=== PATIENT | female | born 1965 | race Caucasian/White ===

== ENCOUNTER 2021-03-09 19:40 | Emergency (ER) | payer BC, SELFPAY ==
--- NOTE | 2021-03-09 | ECG_ITS ---
Test Reason : DYZZY Blood Pressure : / mmHG Vent. Rate : 069 BPM Atrial Rate : 069 BPM P-R Int : 162 ms QRS Dur : 072 ms QT Int : 424 ms P-R-T Axes : 068 015 043 degrees QTc Int : 454 ms Normal sinus rhythm Normal ECG No previous ECGs available Referred By: Virgil Medina Electronically Signed By:Bhupendra Martinez
--- NOTE | ~2021-03-09 | XR_ITS ---
EXAMINATION: PORTABLE CHEST 1 VIEW CLINICAL INFORMATION: Cough . COMPARISON: No recent pertinent prior studies are available for comparison. TECHNIQUE: Portable frontal view of the chest was obtained. FINDINGS: The lungs are well expanded. No focal infiltrate, effusion, edema, or pneumothorax. Cardiac and mediastinal silhouettes are within normal limits for technique. No acute bony abnormality seen. XR/XR chest 1V IMPRESSION: No evidence of acute disease.
[2021-03-09 21:08] VITALS: BP 122/78; PULSE 67; RESP 18; TEMP 37; O2SAT 100; BMI 25.4
--- NOTE | 2021-03-09 21:47 | ED.GENADULT ---
HPI - General Adult General Chief complaint: Upper Respiratory Symptoms Stated complaint: Earache Time Seen by Provider: 03/09/21 21:36 History of Present Illness HPI narrative: Patient complains of an episode of dizziness and feeling like she might pass out accompanied by vomiting She was standing in the kitchen feeling normal when a wave of nausea came and she went to the bathroom and then never fainted but did feel she was about to pass out as she vomited and then symptoms resolved She never fainted she did not have chest pain or shortness of breath she had no palpitations , she has had no exertional symptoms She also complains of upper respiratory symptoms in the preceding week or she has had a runny nose congestion and a cough as well as some ear pain She went to the urgent care and was given a Z-Guy for possible sinusitis but that has not improved her cold symptoms Related Data Allergies Allergy/AdvReac Type Severity Reaction Status Date / Time No Known Allergies Allergy Unverified 12/20/19 15:44 [No Known Allergies*] Review of Systems Review of Systems: Positive for episode of nausea vomiting and feeling faint Also positive for cold symptoms with cough and nasal congestion and ear pain Negatives are no fever no chills no headache no neck pain no numbness or weakness no stiff neck no chest pain no shortness of breath no palpitations no exertional symptoms no abdominal pain no dysuria no skin rash no numbness or weakness Yes all other systems are reviewed and are negative [facility] Past Medical History Medical History (Updated 03/10/21 @ 00:59 by BRENT Cole) Anxiety No known health problems Social History Social History Advance Directives: No Patient : No Physical Exam Vital Signs: Vital Signs: Last Vital Signs Temp 98 F 03/09/21 23:19 Pulse 67 03/09/21 23:19 Resp 18 03/09/21 23:19 BP 114/63 03/09/21 23:19 Pulse Ox 99 03/09/21 23:19 BMI result Body Mass Index 25.4 General appearance is no acute distress The eyes are anicteric with no pallor Pupils equal round reactive to light and extraocular motions are intact The pharynx is clear and well hydrated with no redness swelling or exudate The ears are normal with normal tympanic membranes and canals there is no redness, light reflex was normal bilaterally and easily seen The sinuses were nontender Chest is clear to auscultation bilateral next line heart no murmurs At meds soft and non tender Extremities no calf tenderness no edema no leg swelling Neuro no focal motor sensory deficit, gait and balance are normal Course Course Course Narrative: Chest x-ray was negative , COVID test was negative Labs did not reveal any acute abnormality First troponin was negative EKG was a normal sinus rhythm with no acute ischemic changes no ST elevations, intervals were normal Patient remains comfortable throughout ER visit and is drinking plenty of fluids without any nausea so no IV fluids were provided, vital signs remain stable and normal For her episode of vomiting and feeling faint we reviewed 2 troponins and a normal EKG Patient is advised to follow closely with primary doctor to further rule out the possibility that this was a cardiac related event It is also very possible this was a vasovagal event as she vomited then stood up abruptly and then felt like she was about to pass out Medical Decision Making Lab Data Lab results reviewed: Yes I reviewed the patient's lab results. Result diagrams: 03/09/21 22:11 03/09/21 22:11 Labs: Lab Results 03/09/21 03/09/21 03/09/21 Range/Units 21:33 22:11 22:11 WBC 7.0 (4.8-10.8) X10*3/uL RBC 3.95 L (4.20-5.50) X10*6/uL Hgb 12.2 (12.0-16.0) g/dl Hct 36.5 L (37.0-47.0) % MCV 92.4 (80.0-98.0) fL MCH 30.9 (27.0-33.0) pg MCHC 33.4 (31.0-35.0) g/dl RDW 13.7 (11.0-16.0) % Plt Count 244 (160-400) X10*3/uL MPV 9.8 (9.4-12.3) fL Immature Gran % (Auto) 0.4 (0.0-0.4) % Neut % (Auto) 70.2 (45-73) % Lymph % (Auto) 16.8 L (20-40) % [place] % (Auto) 10.4 (2-11) % Eos % (Auto) 1.3 (0-4) % Baso % (Auto) 0.9 (0-2) % Lymph # (Auto) 1.2 (1.2-4.9) X10*3/uL [place] # (Auto) 0.7 (0.1-1.2) X10*3/uL Eos # (Auto) 0.1 (0.0-0.4) X10*3/uL Baso # (Auto) 0.1 (0.0-0.2) X10*3/uL Abs Immat Gran (auto) 0.03 (0.00-0.03) X10*3/uL Absolute Neuts (auto) 4.9 (2.0-8.3) x10*3/uL Absolute Nucleated RBC 0.000 (0.0-0.012) X10*3/uL Nucleated RBC % (auto) 0.0 (0.0-0.2) /100WBC Sodium (135-145) mmol/L Potassium (3.3-5.1) mmol/L Chloride (96-108) mmol/L Carbon Dioxide (22-29) mmol/L Anion Gap (12-20) BUN (9-16) mg/dL Creatinine (0.5-1.4) mg/dL Estim Creat Clear Calc Estimated GFR Random Glucose (60-115) mg/dL Calcium (8.4-10.2) mg/dL Total Bilirubin (0.0-1.0) mg/dL Direct Bilirubin (0.0-0.5) mg/dL AST (5-31) U/L ALT (0-31) U/L Alkaline Phosphatase (39-117) U/L Troponin I High Sens < 3.5 (<3.5-17.0) ng/L Total Protein (6.5-8.0) g/dL Albumin (3.5-5.0) g/dL Lipase (8-78) U/L COVID-19 ([facility]) Negative (Negative) COVID-19 Clin Com See Note 03/09/21 Range/Units 22:11 WBC (4.8-10.8) X10*3/uL RBC (4.20-5.50) X10*6/uL Hgb (12.0-16.0) g/dl Hct (37.0-47.0) % MCV (80.0-98.0) fL MCH (27.0-33.0) pg MCHC (31.0-35.0) g/dl RDW (11.0-16.0) % Plt Count (160-400) X10*3/uL MPV (9.4-12.3) fL Immature Gran % (Auto) (0.0-0.4) % Neut % (Auto) (45-73) % Lymph % (Auto) (20-40) % [place] % (Auto) (2-11) % Eos % (Auto) (0-4) % Baso % (Auto) (0-2) % Lymph # (Auto) (1.2-4.9) X10*3/uL [place] # (Auto) (0.1-1.2) X10*3/uL Eos # (Auto) (0.0-0.4) X10*3/uL Baso # (Auto) (0.0-0.2) X10*3/uL Abs Immat Gran (auto) (0.00-0.03) X10*3/uL Absolute Neuts (auto) (2.0-8.3) x10*3/uL Absolute Nucleated RBC (0.0-0.012) X10*3/uL Nucleated RBC % (auto) (0.0-0.2) /100WBC Sodium 140 (135-145) mmol/L Potassium 4.4 (3.3-5.1) mmol/L Chloride 108 (96-108) mmol/L Carbon Dioxide 23 (22-29) mmol/L Anion Gap 13 (12-20) BUN 12 (9-16) mg/dL Creatinine 0.72 (0.5-1.4) mg/dL Estim Creat Clear Calc 69.2 Estimated GFR > 60 Random Glucose 90 (60-115) mg/dL Calcium 9.0 (8.4-10.2) mg/dL Total Bilirubin 0.4 (0.0-1.0) mg/dL Direct Bilirubin < 0.2 (0.0-0.5) mg/dL AST 19 (5-31) U/L ALT 14 (0-31) U/L Alkaline Phosphatase 83 (39-117) U/L Troponin I High Sens (<3.5-17.0) ng/L Total Protein 6.8 (6.5-8.0) g/dL Albumin 4.0 (3.5-5.0) g/dL Lipase 90 H (8-78) U/L COVID-19 ([facility]) (Negative) COVID-19 Clin Com Discharge Plan Discharge Clinical Impression: Pre-syncope, Vomiting, Acute viral syndrome Patient Disposition: Home, Self-Care Additional Instructions: We were concerned about your episode of feeling faint and vomiting so we checked heart attack tests and EKG which luckily were normal Follow closely with primary care doctor for further evaluation, and they will decide if stress testing is warranted As you vomited and felt the symptoms on standing up it is also possible that this was a vasovagal episode where blood pressure dropped as you stood up Your COVID test was negative her chest x-ray was normal and other lab tests were normal Both ears were normal in appearance with no sign of infection and her lungs were clear Vital signs were all normal Drink plenty of fluids Return to the ER any time any worse condition or any concerns
[2021-03-09 22:18] LABS: MANUAL DIFF FLAG NO
[2021-03-09 22:19] LABS: Basophils Absolute Auto 0.1 X10*3/uL (0.0-0.2); Basophils Percent Auto 0.9 % (0-2); Eosinophils Absolute Auto 0.1 X10*3/uL (0.0-0.4); Eosinophils Percent Auto 1.3 % (0-4); Hematocrit 36.5 % (37.0-47.0); Hemoglobin 12.2 g/dl (12.0-16.0); Imm Gran Abs Auto 0.03 X10*3/uL (0.00-0.03); Imm Gran Pct Auto 0.4 % (0.0-0.4); Lymphocytes Absolute Auto 1.2 X10*3/uL (1.2-4.9); Lymphocytes Percent Auto 16.8 % (20-40); Mean Corpuscular HGB Conc 33.4 g/dl (31.0-35.0); Mean Corpuscular Hemoglobin 30.9 pg (27.0-33.0); Mean Corpuscular Volume 92.4 fL (80.0-98.0); Mean Platelet Volume 9.8 fL (9.4-12.3); Monocytes Absolute Auto 0.7 X10*3/uL (0.1-1.2); Monocytes Percent Auto 10.4 % (2-11); Neutrophils Absolute Auto 4.9 x10*3/uL (2.0-8.3); Neutrophils Percent Auto 70.2 % (45-73); Platelet Count 244 X10*3/uL (160-400); Red Blood Count 3.95 X10*6/uL (4.20-5.50); Red Cell Distribution Width 13.7 % (11.0-16.0)
[2021-03-09 22:34] LABS: Alanine Aminotransferase 14 U/L (0-31); Alkaline Phosphatase 83 U/L (39-117); Anion Gap 13 (12-20); Aspartate Amino Transferase 19 U/L (5-31); Bilirubin Direct < 0.2 mg/dL (0.0-0.5); Bilirubin Total 0.4 mg/dL (0.0-1.0); Blood Urea Nitrogen 12 mg/dL (9-16); Carbon Dioxide 23 mmol/L (22-29); Chloride 108 mmol/L (96-108); Creatinine Clr Calc Pharmacy 69.2; Estimated Glomerular Filt Rate > 60; Glucose Random 90 mg/dL (60-115); Lipase 90 U/L (8-78); Potassium 4.4 mmol/L (3.3-5.1); Sodium 140 mmol/L (135-145); Total Protein 6.8 g/dL (6.5-8.0)
[2021-03-09 22:40] LABS: Troponin-I High Sensitivity < 3.5 ng/L (<3.5-17.0)
[2021-03-09 23:12] LABS: COVID-19 Test Negative (Negative)
[2021-03-09 23:19] VITALS: BP 114/63; PULSE 67; RESP 18; TEMP 36.6; O2SAT 99
[2021-03-10 00:51] LABS: Troponin-I High Sensitivity < 3.5 ng/L (<3.5-17.0)
== END 2021-03-10 01:13 | disposition home or self-care (01) ==
PROVIDERS: Physician Assistant Medical; Emergency Provider Emergency Medicine Emergency Medical Services; PCP Nurse Practitioner Family
DX: R55 Syncope and collapse (principal); R11.10 Vomiting, unspecified; B34.9 Viral infection, unspecified; Z20.822 Contact with and (suspected) exposure to COVID-19
CPT/HCPCS: 36415; 71045; 80048; 80076; 83690; 84484; 85025; 87635; 93005; 99283; 99285

== ENCOUNTER 2022-01-22 14:52 | Outpatient (REF) | payer BC, SELFPAY ==
--- NOTE | ~2022-01-22 | MM_ITS ---
EXAMINATION: MM SCREENING DIGITAL BREAST TOMOSYNTHESIS, BILATERAL CLINICAL INFORMATION: Screening. Asymptomatic. The lifetime risk of breast cancer based on the Tyrer-Cuzick Model is 13.3%. COMPARISON: Mammography: September 15, 2018 and studies dating back to May 02, 2014 TECHNIQUE: Digital breast tomosynthesis is performed in both the craniocaudal and mediolateral oblique views along with computer-aided detection (CAD). Synthesized 2D images are generated from the tomosynthesis. FINDINGS: The breasts are extremely dense, which lowers the sensitivity of mammography (ACR BI-RADS breast composition Category d). There are no significant masses, abnormal calcifications, or other abnormalities. MM/MM tomosynthesis screening BI IMPRESSION: No significant changes from prior exam. ASSESSMENT: BI-RADS 1: Negative RECOMMENDATION: Routine annual mammography screening. This patient's information was entered into a reminder system with a target due date for their next mammogram.
== END 2022-01-22 14:53 | disposition home or self-care (01) ==
LOC: HO.MAMMO 14:52
PROVIDERS: PCP Obstetrics & Gynecology; Visit Provider Obstetrics & Gynecology
DX: Z12.31 Encounter for screening mammogram for malignant neoplasm of breast (principal)
CPT/HCPCS: 77063; 77067